=== PATIENT | female | born 1990 | race Caucasian/White ===

== ENCOUNTER 2025-01-14 12:34 | Inpatient (IN) | payer OTHER ==
[2025-01-14] MEDS: ELECTROLYTE-148 SOLN 500 ML IV SCH (13:30)
[2025-01-14 14:16] VITALS: BMI 29.3
[2025-01-14] MEDS: ELECTROLYTE-148 SOLN 1,000 ML IV SCH ×2 (15:00→16:30)
[2025-01-14 15:52] LABS: ABSOLUTE IMMATURE GRANULOCYTES 0.07 x10^3/uL (0.0-0.031); BASOPHILS # 0.02 x10^3/uL (0.01-0.08); EOSINOPHIL % 0.5 % (0.7-5.8); EOSINOPHILS # 0.04 x10^3/uL (0.04-0.36); HEMATOCRIT 34.2 % (34.1-44.9); HEMOGLOBIN 10.6 g/dL (11.2-15.7); MEAN CELL VOLUME 83.4 fl (79.4-94.8); MEAN PLT VOLUME 10.4 fl (9.4-12.3); MONOCYTE # 0.46 x10^3/uL (0.24-0.86); MONOCYTE % 5.3 % (4.7-12.5); PLATELET COUNT 245 x10^3/uL (182-369); RDW 17.6 % (12.1-16.8)
[2025-01-14] MEDS: DINOPROSTONE 10 MG VAGINAL SUPPOSITORY VG ONE (16:00)
[2025-01-14 16:07] LABS: INR 0.93 (0.83-1.09); PROTHROMBIN TIME (PATIENT) 10.1 SEC (9.7-13.0)
[2025-01-14 16:09] LABS: POTASSIUM 3.9 mmol/L (3.5-5.1)
[2025-01-14 16:10] LABS: ACTIVATED PTT 25.7 SECONDS (25.2-36.5); BLOOD UREA NITROGEN 8.7 mg/dL (7-18); CALCIUM 9.3 mg/dL (8.5-10.1)
[2025-01-14 16:14] LABS: CREATININE 0.4 mg/dL (0.55-1.3)
[2025-01-14] MEDS ORDERED: AMPICILLIN SODIUM 2 GM VIAL ONE (17:00)
[2025-01-14] MEDS: AMPICILLIN - 2 GM in SODIUM CHLORIDE 100 ML IVPB ONE (17:00)
[2025-01-14 19:25] LABS: HIV INTERPRETATION NEGATIVE (NEGATIVE)
[2025-01-14] MEDS ORDERED: AMPICILLIN SODIUM 1 GM VIAL ONE (21:10)
[2025-01-14] MEDS ORDERED: SODIUM CHLORIDE 100 ML IVPB ONE (21:10)
[2025-01-14] MEDS: AMPICILLIN - 1 GM in SODIUM CHLORIDE 100 ML IVPB SCH (21:15)
[2025-01-14] MEDS ORDERED: BUTORPHANOL TARTRATE 2 MG/ML VIAL ONE (21:49)
[2025-01-14] MEDS: BUTORPHANOL TARTRATE 1 MG/ML VIAL IVPB ONE (21:54)
[2025-01-14] MEDS ORDERED: OXYTOCIN 20 UNITS in 0.9% NS 20 UNIT/1,000 ML INFUS.BAG IV ONE (22:39)
[2025-01-14] MEDS: OXYTOCIN 20 UNITS in 0.9% NS 20 UNIT/1,000 ML INFUS.BAG IV SCH (22:56)
[2025-01-14] MEDS ORDERED: MISOPROSTOL 200 MCG TABLET ONE (22:59)
[2025-01-14] MEDS: MISOPROSTOL 200 MCG TABLET PV ONE (23:02)
[2025-01-14] MEDS: METHYLERGONOVINE MALEATE 0.2 MG/1 ML AMP IM PRN (23:09)
[2025-01-14 23:13] LABS: CORD BASE EXCESS -5.9 mmol/L (0-2); CORD HCO3 18.3 mmHg (20-29); CORD PCO2 33.1 mmHg (30-78); CORD pH 7.36 (7.14-7.44)
[2025-01-14] MEDS ORDERED: ACETAMINOPHEN 325 MG TABLET (FP) PO PRN (23:26)
[2025-01-14] MEDS ORDERED: BISACODYL 10 MG SUPP.RECT RC PRN (23:26)
[2025-01-14] MEDS ORDERED: BENZOCAINE 28 GM HEMORRHOIDAL OINTMENT TP PRN (23:26)
[2025-01-15] MEDS ORDERED: IBUPROFEN 600 MG TABLET (FP) PO ONE (00:45)
[2025-01-15] MEDS: IBUPROFEN 600 MG TABLET (FP) PO PRN (00:45)
[2025-01-15] MEDS: MISOPROSTOL 200 MCG TABLET NR ONE (00:51)
[2025-01-15] MEDS: BENZOCAINE 20% 57 GM BOTTLE TP PRN (05:08)
[2025-01-15] MEDS: WITCH HAZEL 50% (TUCKS) 40 PAD/JAR PAD TP PRN (05:09)
[2025-01-15 07:08] LABS: ABSOLUTE IMMATURE GRANULOCYTES 0.07 x10^3/uL (0.0-0.031); BASOPHILS # 0.04 x10^3/uL (0.01-0.08); EOSINOPHIL % 0.3 % (0.7-5.8); EOSINOPHILS # 0.03 x10^3/uL (0.04-0.36); HEMATOCRIT 32.9 % (34.1-44.9); MCHC 30.4 g/dl (32.2-35.5); MEAN CELL VOLUME 83.1 fl (79.4-94.8); MEAN PLT VOLUME 10.7 fl (9.4-12.3); MONOCYTE # 0.53 x10^3/uL (0.24-0.86); MONOCYTE % 4.9 % (4.7-12.5); PLATELET COUNT 216 x10^3/uL (182-369); RDW 17.4 % (12.1-16.8)
[2025-01-15] MEDS: metFORMIN HCL 500 MG TABLET (FP) PO SCH (07:59)
[2025-01-15] MEDS ORDERED: SENNOSIDES/DOCUSATE COMBO (SENNA PLUS) TABLET (UD) PO PRN (22:00)
[2025-01-16 09:08] VITALS: BP 115/72; PULSE 90; RESP 17; TEMP 97.3
== END 2025-01-16 14:45 | disposition home or self-care (01) | DRG 560 ==
LOC: JLDR 12:34 → J3W 01-15 01:45
PROVIDERS: ADMIT Obstetrics & Gynecology Obstetrics; ATTEND Obstetrics & Gynecology Obstetrics
PROC: 0KQM0ZZ Repair Perineum Muscle, Open Approach (ICD-10-PCS; principal; 2025-01-14)
PROC: 10E0XZZ Delivery of Products of Conception, External Approach (ICD-10-PCS; 2025-01-14)
DX: O24.424 Gestational diabetes mellitus in childbirth, insulin controlled (principal); O70.1 Second degree perineal laceration during delivery; Z3A.39 39 weeks gestation of pregnancy; Z37.0 Single live birth
CPT/HCPCS: 36415; 36600; 59409; 80048; 82803; 82962; 83655; 85025; 85610; 85730; 86780; 86850; 86900; 86901; 87389